=== PATIENT | male | born 1940 | race Caucasian/White ===

== ENCOUNTER 2019-02-25 06:19 | Observation (INO) ==
--- NOTE | 2019-02-19 15:38 | Anesthesiology Consultation ---
Date of Service February 19, 2019 Assessment & Plan Chart Review Chart Review: Acceptable Risk for Surgery and Patient NOT seen in Pre Admission Testing Consults Requested none ASA ASA4 Proposed Anesthesia Anesthesia Type: MAC History Surgery Operation Date: 02/25/19 08:00 Proposed Procedures p Biventricular ICD Generator Change/Upgrade w/Jamaal Varela DO Height/Weight Height: 5 ft 7 in Weight: 84.822 kg Allergies Allergy/AdvReac Type Severity Reaction Status Date / Time Penicillins Allergy Intermediate Hives Verified 02/19/19 08:09 Medications Home Medications Medication Instructions Recorded Confirmed Last Taken albuterol sulfate 0.63 mg INHALATION QID PRN 02/19/19 02/19/19 Unknown amiodarone 200 mg PO QAM 02/19/19 02/19/19 Unknown atorvastatin 20 mg PO QPM 02/19/19 02/19/19 Unknown donepezil 5 mg PO QPM 02/19/19 02/19/19 Unknown insulin aspart U-100 [Novolog 1 unit SUBCUT UD 02/19/19 02/19/19 Unknown Flexpen U-100 Insulin] insulin detemir U-100 [Levemir 25 unit SUBCUT BID 02/19/19 02/19/19 Unknown U-100 Insulin] isosorbide dinitrate 30 mg PO QAM 02/19/19 02/19/19 Unknown levothyroxine 50 mcg PO QAM 02/19/19 02/19/19 Unknown metoprolol succinate 50 mg PO QPM 02/19/19 02/19/19 Unknown mexiletine 150 mg PO BID 02/19/19 02/19/19 Unknown spironolactone 25 mg PO QPM 02/19/19 02/19/19 Unknown warfarin 1 mg PO UD 02/19/19 02/19/19 Unknown warfarin 2.5 mg PO UD 02/19/19 02/19/19 Unknown Past Medical History Medical History Atrial fibrillation CHF (congestive heart failure) Dementia Diabetes mellitus, type 2 Generalized weakness Hyperlipidemia Hypertension Hypothyroidism ICD (implantable cardioverter-defibrillator) in place 2 LEAD (BATTERY NEEDS CHANGED) ST REGULO IMPLANTED 2009 HOME MONITORS Ischemic cardiomyopathy Myocardial Infarction ? REMEMBER YEAR (MORE THAN 10 YEARS AGO) Osteoarthritis Pacemaker 2 LEAD (BATTERY NEEDS REPLACED) ST. REGULO IMPLANTED 2009 PCP OFFICE CHECKS DEVICE Peripheral neuropathy Sleep apnea NO DEVICE Stroke 2016 (POOR SPEECH) Transient ischemic attack (TIA) 2017 V tach Exercise / Class Metabolic Activity III < 4 Walking/Shop/Light housework Past Family History Family History Mother Family history of diabetes mellitus Past Surgical History Surgical History History of cardiac cath OVER 10 YEARS AGO (NO STENTS PLACED) History of colonoscopy History of coronary artery bypass graft 2 VESSELS OVER 10 YEARS AGO (DONE [facility] IN [place]) History of tonsillectomy and adenoidectomy History of tooth extraction Past Anesthesia History No Hx of Anesthesia Complications and No Family Hx of Anesthesia Complications History of PONV No Hx of PONV and No Hx of Motion Sickness Social History Smoking Status: Former smoker tobacco type: cigarettes Do You Dip or Chew Tobacco: No Smoking End Date: 30 YEARS AGO Hx Alcohol Use: No Hx Substance Use: No substance use type: does not use Testing Laboratory Results WBC: 7.0 02/10/2019 Hc Hct: 38.9 PLATELETS: 190 SODIUM: 137 POTASSIUM: 4.7 CHLORIDE: 104 CO2: 26 BUN: 22 CREATININE: 1.1 GLUCOSE: 146 PT: PTT: INR: UA: TYPE AND SCREEN: Electrocardiogram Date: 12/11/18 AV dual paced rhythm w/ prolonged AV conduction Chest X-Ray Date: 12/30/18 Findings: + pulmonary vascular congestion (mild ) and + pleural effusion (stable small left) Stress Test Date: 01/02/19 Type: nuclear Resting EF: 20 Resting LV Function: dysfunctional (severe LV dysfunction;dilated LV) Resting RWMA: + hypokinetic (severe HK)
[~2019-02-25 06:19] MED LIST: CEFAZOLIN 2000MG 2,000 MG/15 ML SYR IV SCH; CLINDAMYCIN 600 MG/54 ML BAG IV SCH; LR 15ML/HR IV SCH; SODIUM CHLORIDE 0.9% 1000ML IV SCH
[2019-02-25] MEDS ORDERED: PROPOFOL IV EMULSION 10 MG/ML 100 ML VIAL IV ONE (07:10)
[2019-02-25] MEDS ORDERED: LIDOCAINE HCL 2% 2 ML VIAL/AMP(20MG/ML) INFIL ONE (07:10)
[2019-02-25] MEDS ORDERED: fentaNYL citrate 100 MCG/2 ML VIAL ONE (07:10)
[2019-02-25] MEDS ORDERED: MIDAZOLAM HCL 1 MG/ML 2ML VIAL ONE (07:10)
[2019-02-25] MEDS ORDERED: ONDANSETRON INJ 2 MG/ML 2 ML VIAL ONE (07:11)
[2019-02-25] MEDS ORDERED: PROPOFOL IV EMULSION 10 MG/ML 20 ML VIAL IV ONE (07:11)
[2019-02-25] MEDS ORDERED: LIDOCAINE HCL 1% 20 ML VIAL ONE (07:22)
[2019-02-25] MEDS ORDERED: BUPIVACAINE 0.25% 30 ML VIAL ONE (07:22)
[2019-02-25] MEDS ORDERED: BACITRACIN INJ 50,000 UNIT VIAL ONE (07:22)
[2019-02-25] MEDS ORDERED: ePHEDrine sulfate 50 MG/ML AMP IV PRN (07:46)
[2019-02-25] MEDS ORDERED: ATROPINE SULFATE 0.1 MG/ML 10ML SYR IV PRN (07:46)
[2019-02-25] MEDS ORDERED: ONDANSETRON INJ 2 MG/ML 2 ML VIAL IV PRN (07:46)
--- NOTE | 2019-02-25 07:52 | History & Physical Bridge Note ---
Date of Service February 25, 2019 History & Physical Bridge Note I have examined the patient, reviewed the History & Physical and in the interval since the performance of the History & Physical I have noted the following changes of clinical significance: no changes noted
[2019-02-25] MEDS ORDERED: KETAMINE HCL INJ 50 MG/ML 10 ML VIAL ONE (08:06)
[2019-02-25] MEDS ORDERED: SODIUM CHLORIDE 0.9% INJ 10 ML VIAL ONE (08:58)
[2019-02-25] MEDS ORDERED: OXYCODONE/ACETAMINOPHEN 5mg/325mg TAB PO PRN (11:22)
[2019-02-25] MEDS ORDERED: ACETAMINOPHEN 325 MG TAB PO PRN (11:22)
--- NOTE | 2019-02-25 11:22 | Operative Report ---
Post Operative Report Pre & Post Diagnosis CHB with high RV pacing, ICM, Chronic systolic HF-NYHA Class III Operation Date: 02/25/19 08:00 <No data on this case meets the specified criteria> Procedure Operation Date: 02/25/19 08:00 Actual Procedures p Upgrade of any system to BIV - Vesna Varela DO s Insertion ICD w/Existing Dual - Vesna Varela DO Surgeon Vesna Varela, Community Recreation Programmer none Estimated Blood Loss 25 Findings Consistent with Post-Op Diagnosis Specimens none Description of Procedure see official report I attest to the content of the Intraoperative Record and any orders documented therein. Any exceptions are noted below.
[2019-02-25] MEDS ORDERED: ALBUTEROL 0.083% NEBU SOLN 3 ML VIAL INH PRN (11:23)
--- NOTE | 2019-02-25 13:00 | Operative Report ---
DATE OF OPERATION: 02/25/2019 PREOPERATIVE DIAGNOSES: Ischemic cardiomyopathy, high degree atrioventricular block with 90% right ventricular pacing, chronic systolic heart failure, [place] Heart Association class 3. PROCEDURE: Upgrade from a dual chamber rate responsive implantable cardiac defibrillator to a biventricular (His bundle), biventricular defibrillator under fluoroscopic guidance along with the peripheral and coronary sinus venogram, unipolar electrical mapping of the His bundle region. SURGEON: Vesna Varela DO. ASSISTANTS: None. ANESTHESIA: Monitored anesthetic care administered via anesthesiology. Start time was 08:07 end time was 11:08. They got a total of 940 mg of propofol, 2 mg of Versed, 100 mcg of fentanyl, and 25 mg of ketamine. Additional meds was 4 mg of Zofran. BLOOD LOSS: 25 mL. ANTIBIOTICS: 600 mg of clindamycin. IV CONTRAST: 100 mL of Optiview. INTRAVENOUS FLUIDS: 300 mL. URINE OUTPUT: Not applicable. SPECIMENS: None. FINDINGS: See below. DRAINS: None. INDICATIONS: This is a 78-year-old gentleman who has a past medical history for ischemic cardiomyopathy, ejection fraction was 40-45%, but then has further declined in 12/2018 to 20%. He has a history of a dual chamber ICD in 05/2010, high degree AV block with his RV pacing burden increased over the years to 90%, chronic systolic heart failure, [place] Heart Association class 3 with recent multiple acute heart failure hospitalizations, paroxysmal atrial fibrillation on Coumadin, CHADS2-VASc score is 7, paroxysmal ventricular tachycardia on amiodarone and mexiletine since 2009, coronary artery disease, history of a CABG, DALEY to LAD, SVG to diagonal, SVG to PDA, SVG to OM in 2002; however, by catheterization in 05/2012 the SVG to the RCA/PDA was known to be occluded, hyperlipidemia, hypertension, history of CVA, 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 Due to the worsening acute heart failure and his decline in his cardiomyopathy with a high degree of RV pacing and negative nuclear stress test recently, he was recommended an upgrade to a biventricular device. CONSENT: Consent was obtained prior to the patient going into the electrophysiology lab. The patient was informed of the risks, benefits and alternative of procedure. Risks include but not limited to sudden cardiac , cardiac arrhythmias, cerebrovascular accident, myocardial infarction, injury to the blood vessels, chamber of the heart, lung, bleeding, and infection. The patient understood these risks and agreed to the procedure as planned. Informed consent was obtained. DESCRIPTION OF THE PROCEDURE: The patient was brought into the electrophysiology lab in a fasting state. After continuous secured entrance monitor, a timeout was performed to ensure patient identity and procedure correctly. Before prepping the patient, we did a timeout and then did a peripheral venogram to identify that the subclavian vein was patent. The patient was prepped and draped over the left infraclavicular space in normal surgical standard fashion. Monitored conscious sedation was given throughout the procedure for patient's comfort level. [place] precautions were maintained throughout the procedure. He received prophylactic antibiotics prior to incision. A 20 mL of 1% lidocaine, bupivacaine mixture were given over the prior surgical incision. Incision was made with prior surgical incision. Venous access was obtained through an axillary stick without any problems. The guidewire was inserted without any resistance. A 9.5-Kazakh sheath was inserted over the guidewire without any resistance. Guidewire and dilator were removed. Then a NexJ Systemstronic MPX coronary sinus outer sheath was advanced into the right atrium over a guidewire. The guidewire and dilator were removed. Then using the EP diagnostic Decapolar catheter, the coronary sinus was cannulated and the MPX was advanced over the EP diagnostic catheter into the coronary sinus. I did multiple coronary sinus venogram. Although the main stem of the coronary sinus was beautiful, branches were very small twisted, barely could show up on the venogram, I did try though to wire the one branch that was in the posterolateral region. We never could see the exact degree takeoff of the branch into the coronary sinus. I tried wiring it with a Whisper wire even with an inner 90 and a second inner 130, but I was never able, so we opted to abort the LV lead in the coronary sinus and set up to do a His bundle. So, the MPX outer sheath was removed and a His bundle sheath was advanced into the right atrium over a guidewire. Then we did unipolar electrical mapping of the His bundle region, we found the AH interval to be 180 milliseconds and the HV interval to be 95 milliseconds. We had a decent capture of the His bundle at this area, so then the His lead was screwed into the heart and then with bipolar pacing it still had decent capture. The His sheath was then slid under fluoroscopic guidance followed then by the 9.5-Kazakh sheath was peeled away. The lead was fixated to pectoralis muscle using 0 silk suture. I then did blunt dissection to get the old defibrillator generator out. It was removed from the capsule. The capsule was disrupted inferiorly and caudally to allow for new blood flow using blunt dissection. Then the leads were tested intraoperatively, see below for results. Then the leads were all attached to the new generator making sure that the pins were in appropriate position, passed the set screws in and set screws were all tightened. The pocket was flushed with copious amounts of bacitracin saline wash and inspected for hemostasis. The defibrillator was then placed in an antibiotic pouch followed then by being placed in the pocket, making sure that the leads were lying flat beneath the device. The incision was then closed in 3-layer fashion using 2-0 Vicryl interrupted suture followed by 3-0 Vicryl interrupted suture followed by 4-0 Monocryl running stitch and Dermabond was applied. EQUIPMENT: 1. Explanted generator is a [employer] Dannie WILSON [id number], serial #[id number] implanted 05/16/2010 less than 3 months left in longevity. 2. The new generator is a Medtronic MVERSEia MRI PUMP INSTALLER-D SureScan [id number], serial # [id number]. 3. The right atrial lead was a [employer] Tendril [id number], serial # [id number] implanted 05/16/2010. 4. The right ventricular lead [employer] Durata [id number]-58, serial # [id number] implanted 05/16/2010. 5. His bundle lead is a Medtronic 3830-69 cm, serial # [id number]. 6. The antibiotic pouch, reference # FAVH1725, lot # [id number], expires 04/09/2019. INTRAOPERATIVE TESTIN. Right atrial lead: P waves 2.6 millivolts, impedance 453 ohms, threshold 1 volt at 0.5 milliseconds. 2. Right ventricular lead: R waves 11.1 millivolts, impedance 392 ohms, threshold 0.9 volts at 0.5 milliseconds. 3. The His bundle bipolar was R waves 1.2 millivolts, impedance 410 ohms and ultimate threshold was 2 volts at 1 millisecond. 4. Again, an AH interval was 180 milliseconds, the HV was 95 milliseconds, the [place] QRS was 176 milliseconds and the His bundle pacing QRS was 174 milliseconds. FINAL MEASUREMENTS THROUGH THE DEVICE: 1. Right atrial lead: P waves 1.4 millivolts, impedance 361 ohms, threshold 0.75 volts at 0.4 milliseconds. 2. Right ventricular lead: R waves 9.6 millivolts, impedance 342 ohms, threshold 1.25 volts at 0.4 milliseconds. 3. The His bundle lead impedance 418 ohms, threshold 2.25 volts at 1 millisecond. 4. The RV coil was 46 ohms, the SVC coil 59 ohms. FINAL PARAMETERS: DDDR 60/130, right atrial amplitude 1.5 volts, pulse width 0.4 milliseconds, sensitivity 0.3 millivolts. Right ventricular amplitude 2.5 volts, pulse width 0.4 milliseconds, sensitivity 0.3 millivolts. Left ventricular amplitude 4 volts, pulse width 1 millisecond. Monitor VT zone at 140 beats per minute for 32 detection intervals, VT zone at 167 beats per minute for 16 detection intervals and VF zone at 200 beats per minute for 30/40 detection intervals and the His bundle lead was set to go up 80 milliseconds before the RV. IMPRESSION: Successful upgrade from a dual chamber implantable cardiac defibrillator to a biventricular implantable cardiac defibrillator rate responsive under fluoroscopic guidance with the left ventricular lead being over the His bundle and peripherally in coronary sinus venogram. PLAN: Monitor patient overnight, 12-lead ECG, chest x-ray. He is not allowed to lift left elbow or left shoulder for 1 month. He cannot lift more than 10 pounds with the left arm for 2 weeks. He can shower in 2 days, let water run over incision, do not scrub it. He should follow up in our [place] office for device and wound check in 1 week's time and he can continue his home medications. I attest to the content of the Intraoperative Record and any orders documented therein. Any exception s are noted below.
[2019-02-25 13:01] LABS: INR 1.9 (0.9-1.1); Partial Thromboplastin Ratio 1.2; Partial Thromboplastin Time 32.9 Seconds (21.0-31.0); Prothrombin Time 18.2 Seconds (9.0-12.0)
[2019-02-25] MEDS ORDERED: GLUCOSE 40% GEL 15 GM TUBE PO PRN (13:15)
[2019-02-25] MEDS ORDERED: GLUCOSE 10 TABS/TUBE PO PRN (13:15)
[2019-02-25] MEDS ORDERED: DEXTROSE 50% 50 ML SYRINGE IV PRN (13:15)
[2019-02-25] MEDS ORDERED: GLUCAGON FOR INJ 1 MG VIAL IM PRN (13:15)
[2019-02-25] MEDS ORDERED: INSULIN DETEMIR FLEXPEN/FLEX TOUCH 100 UNITS/ML 3ML SC ONE (14:00)
[2019-02-25] MEDS: AMIODARONE 200 MG TAB PO SCH (14:44)
[2019-02-25] MEDS: ISOSORBIDE MONO EXTENDED REL 30 MG TABCR PO SCH (14:44)
[2019-02-25] MEDS ORDERED: WARFARIN SOD 5 MG TAB PO SCH (16:00)
--- NOTE | 2019-02-25 16:23 | Discharge Summary ---
Date of Service February 26, 2019 Admission HPI Per Admitting Provider admitted for elective upgrade to BiV ICD Admission Exam Per Admitting Provider aaox3, NAD NC/AT, EOMI Supple No JVD Nrl S1/S2, + murmur CTA b/l no w/r/r soft nt/nd no LE edema b/l skin intact no focal deficits Principal Diagnosis CHB and ICM and Chronic systolic HF NYHA Class III s/p upgrade to BiV ICD Discharge Exam aaox3, NAD NC/AT, EOMI Supple No JVD Nrl S1/S2, No murmur CTA b/l no w/r/r soft nt/nd no LE edema b/l skin intact no focal deficits left pectoral incision intact, no hematoma mild ecchymosis Discharge Data Allergies Allergy/AdvReac Type Severity Reaction Status Date / Time Penicillins Allergy Intermediate Hives Verified 02/19/19 08:09 Procedures Performed Operation Date: 02/25/19 08:00 Actual Procedures p Upgrade of any system to BIV - Vesna Varela DO s Insertion ICD w/Existing Dual - Vesna Varela DO Ordered Studies ECG: AP-NUCLEAR CARDIOLOGY TECHNOLOGIST (His pacing) CXR: no PTX, Leads in position ICD Interrogation:Normal function; stable lead testing 02/25/19 07:00 EP Lab Images for PACS ONCE Hospital Course (1) CHB (complete heart block): (2) Ischemic cardiomyopathy: (3) Chronic systolic congestive heart failure, NYHA class 3: (4) PAF (paroxysmal atrial fibrillation): (5) PVT (paroxysmal ventricular tachycardia): Total Time Total Time Spent Total Time Spent (In Minutes): 30 Total Time Includes: Examination of the Patient, Discharge Planning, Medication Reconciliation and Other Discharge Plan Discharge Items Patient Disposition: Home - Self-Care Reason For Visit: CHF, Cardiomyopathy, BUNDLE PACER AND GENERATOR CH Discharge Diagnosis: ICM, LBBB, Chronic systolic HF NYHA Class III s/p upgrade to BiV ICD Condition on Discharge: Good Activity: As commented below Activity Comment: Do not lift the left elbow over the left shoulder for 1 month Lifting: No more than 10 pounds Lifting Comment: do not lift more than 10 pounds with the left arm for 2 weeks Bathing: Keep incision dry Bathing Comment: can shower 02/27 let water run over the incision do not scrub it Non-emergency contact: Priming Machine Operator Call non-emergency contact if: you have any medication questions Follow-up/Referrals: Christopher Lam D.O. [Primary Care Provider] - Diet: Heart Healthy Addtl Attending Provider Instructions: device and wound check as scheduled next week in [facility] If you notice any swelling or concerns at the incision site call my office immediately Pending Studies at Discharge: No Stand-Alone Forms: My [facility] Medications and DC Order Prescriptions: Continued albuterol sulfate 0.63 mg/3 mL Solution For Nebulization 0.63 mg INHALATION QID PRN (Reason: SHORT OF BREATH) RF: 0 atorvastatin 20 mg Tablet 20 mg PO QPM RF: 0 donepezil 5 mg Tablet 5 mg PO QPM RF: 0 amiodarone 200 mg Tablet 200 mg PO QAM RF: 0 metoprolol succinate 50 mg Tablet Extended Release 24 Hr 50 mg PO QPM RF: 0 spironolactone 25 mg Tablet 25 mg PO QPM RF: 0 isosorbide dinitrate 30 mg Tablet 30 mg PO QAM RF: 0 mexiletine 150 mg Capsule 150 mg PO BID RF: 0 levothyroxine 50 mcg Tablet 50 mcg PO QAM RF: 0 warfarin 5 mg Tablet 2.5 mg PO UD RF: 0 warfarin 1 mg Tablet 1 mg PO UD RF: 0 Novolog Flexpen U-100 Insulin 100 unit/mL (3 mL) Insulin Pen 1 unit SUBCUT UD RF: 0 Levemir U-100 Insulin 100 unit/mL Solution 25 unit SUBCUT BID RF: 0 Discharge Orders: Discharge Order (Routine); Ordered 02/26/19 Ordered By: Vesna Varela Admission Data Admit Date/Time: 02/25/19 10:21 Attending Provider: Vesna Varela Admit Provider: Vesna Varela Primary Care Provider: Christopher Lam
[2019-02-25] MEDS ORDERED: SPIRONOLACTONE 25 MG TAB PO SCH (17:00)
[2019-02-25] MEDS: INSULIN ASPART 100 UNITS/ML 3 ML PEN SQ SCH ×2 (18:06→20:45)
[2019-02-25] MEDS: INSULIN DETEMIR FLEXPEN/FLEX TOUCH 100 UNITS/ML 3ML SQ SCH (20:39)
[2019-02-25] MEDS ORDERED: METOPROLOL SUCC 50MG EXT REL TAB PO SCH (21:00)
[2019-02-25] MEDS ORDERED: DONEPEZIL HCL 5 MG TAB PO SCH (21:00)
[2019-02-25] MEDS ORDERED: INSULIN DETEMIR FLEXPEN/FLEX TOUCH 100 UNITS/ML 3ML SQ SCH (21:00)
[2019-02-25] MEDS ORDERED: ATORVASTATIN 20 MG TAB PO SCH (21:00)
[2019-02-25] MEDS: MEXILETINE HCL 150 MG CAPSULE PO SCH (22:37)
[2019-02-26] MEDS ORDERED: LEVOTHYROXINE SODIUM 50 MCG TABLET PO SCH (06:30)
[2019-02-26] MEDS: CARBOHYDRATES FOR HYPOGLYCEMIA PO PRN ×2 (07:12→07:33)
[2019-02-26] MEDS: MEXILETINE HCL 150 MG CAPSULE PO SCH (08:08)
[2019-02-26] MEDS: ISOSORBIDE MONO EXTENDED REL 30 MG TABCR PO SCH (08:08)
[2019-02-26] MEDS: AMIODARONE 200 MG TAB PO SCH (08:08)
[2019-02-26 08:14] VITALS: BP 118/70; PULSE 59; TEMP 97.5; O2SAT 91
--- NOTE | 2019-02-26 08:28 | XRay Report ---
XR chest 2V routine CLINICAL HISTORY: post implant COMPARISON STUDY: No previous studies for comparison. FINDINGS: Bipolar cardiac pacemaker/defibrillator in good position. Lungs are clear. No evidence for pneumothorax. Prior median sternotomy. IMPRESSION: Cardiac pacemaker in good position. No evidence for pneumothorax. The above report was generated using voice recognition software. It may contain grammatical, syntax or spelling errors. Electronically signed by: Carlos Perez M.D. 02/26/2019 8:26 AM
[2019-02-26] MEDS: INSULIN ASPART 100 UNITS/ML 3 ML PEN SQ SCH (08:38)
[2019-02-26] MEDS: INSULIN DETEMIR FLEXPEN/FLEX TOUCH 100 UNITS/ML 3ML SQ SCH (08:42)
[2019-02-26] MEDS ORDERED: ISOSORBIDE DINITRATE 10 MG TAB PO SCH (09:00)
--- NOTE | 2019-02-26 10:06 | Anesthesiology Progress Note ---
Date of Service February 26, 2019 Anesthesia Post Procedure Vital Signs Vital Signs: Temp Pulse Pulse Resp BP Pulse Ox 02/26/19 09:47 36.4 C L 59 L 59 L 18 118/70 91 02/26/19 09:28 36.4 C L 59 L 59 L 18 118/70 91 02/26/19 08:12 36.4 C L 59 L 18 118/70 91 02/26/19 03:36 36.6 C 60 16 113/59 L 94 02/25/19 23:00 37.1 C 60 18 108/60 90 02/25/19 19:16 36.8 C 60 21 110/66 94 02/25/19 15:10 36.4 C L 59 L 16 143/77 H 97 02/25/19 13:01 60 18 162/74 H 98 02/25/19 12:00 36.6 C 60 20 161/94 H 97 02/25/19 11:45 60 18 150/85 H 95 02/25/19 11:30 60 18 144/75 H 95 02/25/19 11:22 36.4 C L 60 18 136/85 95 Notes Mental Status: alert / awake / arousable and participated in evaluation Nausea / Vomiting: adequately controlled Pain: adequately controlled Airway Patency, RR, SpO2: stable & adequate BP & HR: stable & adequate Hydration State: stable & adequate
[2019-02-26] MEDS ORDERED: WARFARIN SOD 1 MG TAB PO SCH (16:00)
== END 2019-02-26 10:40 | disposition home or self-care (01) ==
LOC: 2S 06:19 → EP 06:19